=== PATIENT | female | born 1945 | race Caucasian/White ===

== ENCOUNTER 2018-02-21 11:28 | Emergency (ER) | payer MEDICARE, SELFPAY ==
[2018-02-21 11:29] VITALS: BP 148/93; PULSE 80; RESP 17; TEMP 36.7; O2SAT 95; BMI 25.1
--- NOTE | 2018-02-21 12:37 | ED.VISSUMM ---
- ER Visit Summary Date of Service: 02/21/18 Chief Complaint: Nosebleed History of Present Illness: The patient is a 73 F who presents for evaluation of a nosebleed. Patient states her nose spontaneously started bleeding from the left nostril. She denies any trauma, and denies sneezing, blowing or picking her nose. She has had issues with nosebleeds in the past and sees an ENT in [place]. Last episode was approximately 1 year ago. Patient denies being on any blood thinners. No other symptoms, including no nausea. Patient is Turkish-speaking, and the [employer] sed special education teacher service was used. Physical Examination: Patient is well-nourished and well-developed, in no distress, hemodynamically stable. Head is normocephalic and atraumatic. Patient has nasal clamp in place with dried blood around the nose. No blood noted in the posterior oropharynx. No oropharyngeal lesions. Examination of the nares shows no bleeding from the right, mild amount of dried blood around the left external naris, and a small clotted vessel in the posterior region of Keisselbach's plexus. Turbinates with normal appearance. Remainder of exam unremarkable. Test Results: [] Emergency Department Course and Treatment: On initial evaluation, patient's epistaxis had resolved. There was a small vessel in the left Keisselbach's plexus that looked like it had been bleeding. Afrin was instilled in the left naris followed by a pledget soaked in Afrin and 4% lidocaine. After a period of time, the pledget was removed, with no further bleeding. Silver nitrate was used to cauterize around the vessel. Patient tolerated the procedure well. She is to follow-up with ENT if she has continued issues with epistaxis. If she is unable to control epistaxis after 20 minutes, she is to return to the emergency department. Patient discharged home with symptoms resolved. Treatment Plan: [] Disposition: [] Impression: Left anterior epistaxis, status post cauterization This note was generated with [employer] dictation software. It may contain incorrect words, spelling, and punctuation that were not noted in review of the chart prior to signing ED Disposition - Plan for ED Patient: Disposition: Home or Assisted Living Chief Complaint: Nosebleed Instructions: Nosebleed Referrals: Gabriel Carter MD [NON-STAFF] - Additional Instructions: If your nose starts bleeding again, please apply pressure with the nose clamp for 20 minutes. If the bleeding does not stop after 20 minutes, return to the emergency department for further. If you continue to have nosebleeds that you are able to stop at home, you will need to follow-up as soon as possible with your Ear Nose Throat (ENT) doctor in [place]. If you have any worsening of your condition or any new concerning symptoms, please return immediately to the emergency department for another evaluation.
[2018-02-21] MEDS: Lidocaine 4% 50 ML Bottle TOPICAL (12:50)
[2018-02-21] MEDS: Oxymetazoline 0.05% 1 SPRAY SPRAY.BTL 2 SPRAY NASAL (12:50)
[2018-02-21] MEDS: Silver Nitrate (BKC) 1 EACH TOPICAL (12:51)
--- NOTE | 2018-02-21 13:35 | DCINST.ED_ITS ---
ED Disposition - Plan for ED Patient: Disposition: Home or Assisted Living Chief Complaint: Nosebleed Instructions: Nosebleed Referrals: Gabriel Carter MD [NON-STAFF] - Additional Instructions: If your nose starts bleeding again, please apply pressure with the nose clamp for 20 minutes. If the bleeding does not stop after 20 minutes, return to the emergency department for further. If you continue to have nosebleeds that you are able to stop at home, you will need to follow-up as soon as possible with your Ear Nose Throat (ENT) doctor in [place]. If you have any worsening of your condition or any new concerning symptoms, please return immediately to the emergency department for another evaluation.
[2018-02-21 13:54] VITALS: BP 152/79; PULSE 64; RESP 16; O2SAT 96
== END 2018-02-21 14:06 | disposition home or self-care (01) ==
PROVIDERS: Emergency Provider Emergency Medicine
DX: R04.0 Epistaxis (principal); I10 Essential (primary) hypertension; Z79.899 Other long term (current) drug therapy
CPT/HCPCS: 30901; 99282

== ENCOUNTER 2018-04-13 15:23 | Emergency (ER) | payer MEDICARE, SELFPAY ==
[2018-04-13 15:24] VITALS: PULSE 70; RESP 18; TEMP 36.4; O2SAT 97; BMI 25.0
[2018-04-13 15:29] VITALS: BP 131/67
--- NOTE | 2018-04-13 15:36 | CT_ITS ---
STUDY: CT ABDOMEN AND PELVIS WITHOUT CONTRAST REASON FOR EXAM: Female, 73 years old. Abdominal pain for one week. History of cholecystectomy and hysterectomy. RADIATION DOSAGE (If Supplied By Facility): CTDIvol = ( 15.91 ) mGy, DLP = ( 844.61 ) mGycm TECHNIQUE: Transaxial images were obtained from the dome of the diaphragm to the symphysis pubis without oral contrast, and without intravenous contrast. Sagittal and coronal images were reconstructed. Individualized dose optimization techniques were used for this CT. COMPARISON: None. FINDINGS: The visualized lung bases are unremarkable. The visualized portions of the heart are within normal limits. Normal liver. There are surgical clips in the gallbladder fossa consistent with a prior cholecystectomy. Normal spleen. Normal pancreas. Normal bilateral adrenal glands. Normal right kidney. Normal left kidney. Normal visualized stomach. Normal small intestine. Normal colon. There are surgical clips in the region of the appendix consistent with a prior appendectomy. Normal abdominal aorta. Normal inferior vena cava. Normal retroperitoneum. Normal urinary bladder. Normal vaginal cuff. There is no pelvic lymphadenopathy. There are prominent varices along the left pelvic sidewall extending to the left gonadal vein. There is no free air or free fluid within the peritoneal cavity. Normal abdominal wall. There are diffuse degenerative changes of the visualized lumbar spine. CT/Abdomen/Pelvis W IV Cont ONLY IMPRESSION: 1. Status post hysterectomy. There are prominent venous structures in the left pelvis extending upward to the left gonadal gonadal vein. These are of uncertain importance. 2. No other evidence of acute intra-abdominal or pelvic abnormality. 3. Evidence of cholecystectomy and appendectomy. 4. Degenerative changes of the lumbar spine. Electronically Signed: Agustín Ceron DO at 17:18 EST Tel [phone], Service support ,
--- NOTE | 2018-04-13 15:38 | ED.VISSUMM ---
- ER Visit Summary Date of Service: 04/13/18 Chief Complaint: Abdominal pain History of Present Illness: The patient is a 73 F history of hypertension and hiatal hernia. Patient is speaking and speaks limited Yakut. Her is in the room with business writer for her. She has had about a week long history of abdominal pain. Started gradually. Primarily periumbilical. Associated nausea but no vomiting and that seemed to have resolved. No dysuria. Intermittent constipation. No fever. No dysuria. She has had a prior cholecystectomy and hysterectomy reportedly. Physical Examination: Well-appearing older female. Vital signs are stable. She is a eyebrow. She does not look septic or toxic. She is in no distress. HEENT exam unremarkable. Moist mucous membranes. Lungs clear to auscultation bilaterally. Heart regular rhythm no murmur. Abdomen soft. Mild periumbilical tenderness. Nondistended. No hernias or masses. No signs of obstruction. Both the right upper right lower quadrant are not specifically remarkable. There are no peritoneal signs. She does have positive bowel sounds. Patient is moving all 4 extremities. Calves are nontender without edema. Back nontender. Neurologically she is awake and alert. Moving all 4 extremities. Test Results: Hemoglobin 12. Electrolytes unremarkable with normal creatinine and gap. Liver enzymes normal. Lipase normal. UA normal. CT abdomen pelvis with IV contrast shows a prior hysterectomy, cholecystectomy and appendectomy in no acute abnormality. Read by the radiologist and reviewed by me. Emergency Department Course and Treatment: Patient treated with a liter normal saline. Treatment Plan: Repeat exam patient doing well at 1840. Abdomen benign. Will be discharged home to follow-up for further evaluation of abdominal pain of uncertain etiology. Disposition: Discharge Impression: Acute abdominal pain of uncertain etiology This note was generated with [employer] dictation software. It may contain incorrect words, spelling, and punctuation that were not noted in review of the chart prior to signing ED Disposition - Plan for ED Patient: Chief Complaint: Abd Pain Referrals: Care Physician,No Primary [Primary Care Provider] -
--- NOTE | 2018-04-13 15:42 | ED.DCSUM_ITS ---
- ER Visit Summary Date of Service: 04/13/18 Chief Complaint: Abdominal pain History of Present Illness: The patient is a 73 F history of hypertension and hiatal hernia. Patient is speaking and speaks limited Maori. Her is in the room with graduate recruiter for her. She has had about a week long history of abdominal pain. Started gradually. Primarily periumbilical. Associated nausea but no vomiting and that seemed to have resolved. No dysuria. Intermittent constipation. No fever. No dysuria. She has had a prior cholecystectomy and hysterectomy reportedly. Physical Examination: Well-appearing older female. Vital signs are stable. She is a eyebrow. She does not look septic or toxic. She is in no distress. HEENT exam unremarkable. Moist mucous membranes. Lungs clear to auscultation bilaterally. Heart regular rhythm no murmur. Abdomen soft. Mild periumbilical tenderness. Nondistended. No hernias or masses. No signs of obstruction. Both the right upper right lower quadrant are not specifically remarkable. There are no peritoneal signs. She does have positive bowel sounds. Patient is moving all 4 extremities. Calves are nontender without edema. Back nontender. Neurologically she is awake and alert. Moving all 4 extremities. Test Results: Hemoglobin 12. Electrolytes unremarkable with normal creatinine and gap. Liver enzymes normal. Lipase normal. UA normal. CT abdomen pelvis with IV contrast shows a prior hysterectomy, cholecystectomy and appendectomy in no acute abnormality. Read by the radiologist and reviewed by me. Emergency Department Course and Treatment: Patient treated with a liter normal saline. Treatment Plan: Repeat exam patient doing well at 1840. Abdomen benign. Will be discharged home to follow-up for further evaluation of abdominal pain of uncertain etiology. Disposition: Discharge Impression: Acute abdominal pain of uncertain etiology This note was generated with [employer] dictation software. It may contain incorrect words, spelling, and punctuation that were not noted in review of the chart prior to signing ED Disposition - Plan for ED Patient: Chief Complaint: Abd Pain Referrals: Care Physician,No Primary [Primary Care Provider] -
[2018-04-13] MEDS: 0.9% Normal Saline 1,000 ML 1000 ML IV (16:03)
[2018-04-13 16:15] LABS: Absolute Lymphocyte Count 2.53 X10^3/ul (0.83-4.51); Absolute Neutrophil Count 3.9 X10^3/uL (2.0-7.7); Basophil# 0.04 X10^3/uL; Basophil% 0.6 % (0-1); Eosinophil# 0.38 X10^3/uL; Eosinophils% 5.3 % (0-5); Hematocrit 37.5 % (37-47); Hemoglobin 12.3 g/dl (12.0-15.0); Lymphocyte # 2.53 X10^3/ul (4.0); Lymphocyte % 35.1 % (19-41); Mean Corp Hgb Conc 32.8 g/gl (32-36); Mean Corpuscular Hgb 28.3 pg (27.0-32.0); Mean Corpuscular Volume 86.4 fL (81-99); Mean Platelet Vol. 11.1 fl (6.2-12.0); Monocyte# 0.36 X10^3/uL; Neutrophil # 3.89 X10^3/uL (2.7-7.7); Platelet Count 188 K/mm3 (150-450); RBC Distribution Width CV 13.6 % (11.6-14.6); RBC Distribution Width SD 43.1 fl (35.1-43.9); Red Blood Count 4.34 M/mm3 (4.2-5.4); White Blood Count 7.2 K/mm3 (4.4-11.0)
[2018-04-13 16:23] LABS: POSITIVE COUNT NO; POSITIVE DIFFERENTIAL NO; POSITIVE MORPHOLOGY NO
[2018-04-13 16:26] LABS: AST(SGOT) 37 U/L (15-37); Alanine Aminotransfer ALT/SGPT 39 U/L (13-56); Albumin, Serum 3.5 g/dL (3.2-5.0); Alkaline Phosphatase 94 U/L (45-117); Anion Gap 8 (5-15); BUN 13 mg/dL (7-18); BUN/Creat Ratio 17.1 RATIO (10-20); Calcium,Total 8.5 mg/dL (8.5-10.1); Chloride 105 mmol/L (98-107); Creatinine, Serum 0.76 mg/dL (0.55-1.02); EST Glomerular Filtration Rate 80 mL/min (>60); Est Glom Filt Rate - Afr Amer 96 mL/min (>60); Estimated Creatinine Clearance 45.76 ml/min; Glucose 146 mg/dL (74-106); Lipase 209 U/L (73-393); Protein, Total 7.5 g/dL (6.4-8.2); Sodium Level 141 mmol/L (136-145)
[2018-04-13 17:04] LABS: Bacteria 0 SEEN /hpf (None Seen); Mucous, Urine 0 SEEN /hpf (<or=2+); Red Blood Cells-Urine 0 SEEN /hpf (0-5); White Blood Cells 0 SEEN /hpf (0-5)
[2018-04-13 17:06] LABS: Color, Urine Yellow (Yellow); Glucose, Dipstick Normal (Normal); Ketone-Dipstick Negative (Negative); Leukocyte Esterase-Dipstick Negative /ul (Negative); Nitrite-Dipstick Negative (Negative); Occult Blood-Urine Negative /ul (Negative); Protein-Dipstick Negative (Negative); Urine Bilirubin Dipstick Negative (Negative); Urine Clarity Clear (Clear); Urine Urobilinogen Normal (Normal)
[2018-04-13 17:23] VITALS: BP 130/72; PULSE 82; RESP 16; O2SAT 99
[2018-04-13 17:24] LABS: Squamous Epithelial Cells - UA 0-5 SEEN /hpf (5-10)
--- NOTE | 2018-04-13 18:43 | ED.DEP ---
ED Disposition - Plan for ED Patient: Chief Complaint: Abd Pain Instructions: ED Abdominal Pain Unkn Cause Referrals: Dick Gatica MD [NON-STAFF] - 3-5 Days if not improving Additional Instructions: Return if feeling worse otherwise follow-up with the outpatient physician and referred to.
[2018-04-13 19:00] VITALS: BP 130/72; PULSE 82; RESP 16; O2SAT 99
[2018-04-13 19:17] VITALS: BP 130/72; PULSE 82; RESP 16; O2SAT 99
== END 2018-04-13 19:19 | disposition home or self-care (01) ==
LOC: ED 16:12
PROVIDERS: Emergency Provider Emergency Medicine
DX: K44.9 Diaphragmatic hernia without obstruction or gangrene (principal); I10 Essential (primary) hypertension; K59.00 Constipation, unspecified; Z79.899 Other long term (current) drug therapy; Z90.49 Acquired absence of other specified parts of digestive tract; Z90.710 Acquired absence of both cervix and uterus
CPT/HCPCS: 74177; 80048; 80076; 81001; 83690; 85025; 96360; 96361; 99284; J7030; Q9967; A4216

== ENCOUNTER 2019-10-29 16:22 | Emergency (ER) | payer MEDICARE, SELFPAY ==
[2019-10-29 16:23] VITALS: BP 139/88; PULSE 106; RESP 20; TEMP 37.1; O2SAT 97; BMI 26.6
--- NOTE | 2019-10-29 16:50 | RAD_ITS ---
STUDY: X-RAY CHEST REASON FOR EXAM: Female, 74 years old. Chest pain, fever. TECHNIQUE: Single frontal view of the chest. COMPARISON: None. FINDINGS: The lungs are clear and expanded. There is no demonstrated pleural abnormality. Normal size heart. Normal mediastinum and christopher. Normal visualized pulmonary arteries. Normal visualized aortic arch and descending thoracic aorta. Normal visualized thoracic spine. Normal visualized ribs, clavicles, and shoulders. Cholecystectomy clips. RAD/Chest 1 View (Portable) IMPRESSION: No acute pulmonary findings. Electronically Signed: Dick Lozano MD at 17:03 EDT Tel , Service support ,
--- NOTE | 2019-10-29 16:51 | NURSING ---
NO OLD EKGS
--- NOTE | 2019-10-29 17:03 | EKG12_ITS ---
Test Reason : ILNESS Blood Pressure : / mmHG Vent. Rate : 096 BPM Atrial Rate : 096 BPM P-R Int : 126 ms QRS Dur : 066 ms QT Int : 372 ms P-R-T Axes : 011 056 040 degrees QTc Int : 469 ms Normal sinus rhythm Normal ECG Confirmed by KYARA VALENCIA ([id number]), loan expeditor MANNY TURK ([id number]) on 11/01/2019 11:27:14 AM Referred By: LEO Confirmed By:KYARA VALENCIA
[2019-10-29] MEDS: Ondansetron 4 MG/2 ML Vial IV (17:30)
[2019-10-29] MEDS: Morphine 4 MG/ML Syringe IV (17:30)
[2019-10-29 17:35] LABS: Absolute Lymphocyte Count 2.13 X10^3/uL (0.83-4.51); Absolute Neutrophil Count 5.1 X10^3/uL (2.0-7.7); Basophil# 0.06 X10^3/uL; Basophil% 0.7 % (0-1); Eosinophil# 0.49 X10^3/uL; Hematocrit 37.8 % (37-47); Hemoglobin 12.3 g/dL (12.0-15.0); Lymphocyte # 2.13 X10^3/ul (4.0); Lymphocyte % 25.9 % (19-41); Mean Corp Hgb Conc 32.5 g/dL (32-36); Mean Corpuscular Volume 86.1 fL (81-99); Mean Platelet Vol. 11.1 fl (6.2-12.0); Monocyte# 0.45 X10^3/uL; Monocyte% 5.5 % (0-10); NRBC Flagged by Analyzer 0 % (0-5); Neutrophil # 5.08 X10^3/uL (2.7-7.7); Neutrophil % 61.7 % (47-70); Platelet Count 198 K/mm3 (150-450); RBC Distribution Width CV 13.1 % (11.6-14.6); RBC Distribution Width SD 40.6 fl (35.1-43.9); Red Blood Count 4.39 M/mm3 (4.2-5.4); White Blood Count 8.2 K/mm3 (4.4-11.0)
[2019-10-29 17:40] VITALS: TEMP 36.6
[2019-10-29 17:48] LABS: International Normalized Ratio 1.1; Partial Thromboplast Time 26.4 Seconds (24.1-36.2); Prothrombin Time (Protime)PT. 13.3 SECONDS (11.7-14.9)
[2019-10-29 17:56] LABS: ALB/GLOB Ratio 0.8 RATIO (0.9-2.4); AST(SGOT) 59 U/L (15-37); Alanine Aminotransfer ALT/SGPT 44 U/L (13-56); Albumin, Serum 3.3 g/dL (3.2-5.0); Alkaline Phosphatase 70 U/L (45-117); Anion Gap 5 (5-15); BUN 13 mg/dL (7-18); BUN/Creat Ratio 12.7 RATIO (10-20); Calcium,Total 8.5 mg/dL (8.5-10.1); Chloride 107 mmol/L (98-107); Creatinine, Serum 1.02 mg/dL (0.55-1.02); EST Glomerular Filtration Rate 56 mL/min (>60); Est Glom Filt Rate - Afr Amer 68 mL/min (>60); Globulin 4.1 g/dL (2.2-4.2); Glucose 169 mg/dL (74-106); Potassium 4.6 mmol/L (3.5-5.1); Protein, Total 7.4 g/dL (6.4-8.2); Sodium Level 138 mmol/L (136-145)
[2019-10-29 18:08] LABS: Lactic Acid 2.2 mmol/L (0.4-1.9)
[2019-10-29 18:10] VITALS: BP 148/83; PULSE 85; RESP 20; TEMP 36.6; O2SAT 96
[2019-10-29 19:21] LABS: Bacteria 0 SEEN /hpf (None Seen); Mucous, Urine 0 SEEN /hpf (<or=2+); Red Blood Cells-Urine 0 SEEN /hpf (0-5); White Blood Cells 0 SEEN /hpf (0-5)
[2019-10-29 19:23] LABS: Color, Urine Yellow (Yellow); Glucose, Dipstick Normal (Normal); Ketone-Dipstick Negative (Negative); Leukocyte Esterase-Dipstick Negative /ul (Negative); Nitrite-Dipstick Negative (Negative); Occult Blood-Urine Negative /ul (Negative); Protein-Dipstick Negative (Negative); Specific Gravity, Urine 1.015 (1.002-1.030); Urine Bilirubin Dipstick Negative (Negative); Urine Clarity Clear (Clear); Urine Urobilinogen Normal (Normal)
[2019-10-29 19:29] LABS: Squamous Epithelial Cells - UA 0-5 SEEN /hpf (5-10)
[2019-10-29 20:00] VITALS: BP 155/65; PULSE 65; RESP 20; TEMP 36.6; O2SAT 97
[2019-10-29] MEDS: 0.9% Normal Saline 1,000 ML 999 ML IV (20:11)
--- NOTE | 2019-10-29 20:41 | ED.VISSUMM ---
- ER Visit Summary Date of Service: 10/29/19 Chief Complaint: Fever History of Present Illness: The patient is a [address] Gatica. She reports that she has a fever that began 4 days ago. She has not taken her temperature she just complains of subjective fever and chills. She has a sore throat that is 7 out of 10 in severity. She denies cough. She reports that she had an episode of chest pain 3 days ago. She denies any chest pain since that time. She reports that she has abdominal pain is 3 out of 10 in severity. She is been nausea and having diarrhea 3 times a day for the past 3 days. She denies any hematochezia. She does report that her stools been black. She complains of dysuria and frequency. She also complains of generalized weakness. Patient denies sick contacts. Has not been camping out of the country. No possible bad food exposure. Does not drink well water. No recent antibiotic use. Physical Examination: Vitals: Stable. Afebrile. General: Well-nourished and well-developed. Head: Normocephalic atraumatic. HEENT: Pharyngeal erythema. No tonsillar exudate or enlargement. No cervical lymphadenopathy. Neck: Supple, no lymphadenopathy. No JVD. Nontender. Cardiovascular: Regular rate and rhythm. No murmurs. Respiratory: No respiratory distress. Clear to auscultation bilaterally. Abdominal: Soft, nontender, nondistended, normal bowel sounds. No guarding, rebound, or peritoneal signs. Back: Nontender. Extremities: Nontender, no edema. Skin: Normal color, no rash. Neurologic: Alert and oriented ?3. Cranial nerves II through XII are intact. Normal strength and sensation. Psych: Normal affect. Test Results: EKG is sinus at [address] changes. Troponin is negative. Strep is negative. COVID is negative. UA is normal. LFTs show an AST of 59. Coags are negative. Chem-7 shows a glucose of 169. CBC shows eosinophils of 6. Lactic acid is 2.2. Chest x-ray is normal. Emergency Department Course and Treatment: Patient was given a liter of normal saline. She was given morphine and Zofran IV. She is resting comfortably. She was unable to present a stool sample while in the emergency department. Treatment Plan: I had a prolonged discussion the patient and her at this time I do not have an explanation for her symptoms. We did discuss the possibility of a false negative COVID test. She is instructed to quarantine. Follow-up with her primary care physician in 2 weeks not improving. Return to the emergency department for any worsening symptoms. Disposition: To home in improved and stable condition. Impression: 1. Fever, uncertain cause. 2. Diarrhea. This note was generated with [employer] dictation software. It may contain incorrect words, spelling, and punctuation that were not noted in review of the chart prior to signing ED Disposition - Plan for ED Patient: Disposition: Home or Assisted Living Instructions: ED FUO Adult Referrals: Dick Gatica MD [Primary Care Provider] - 2 Days
[2019-10-29 21:21] VITALS: BP 154/73; PULSE 58; RESP 17; TEMP 36.9; O2SAT 98
[2019-10-29 21:29] LABS: Reflex Lactate? Y
== END 2019-10-29 21:22 | disposition home or self-care (01) ==
LOC: ED 16:58
PROVIDERS: Emergency Provider Emergency Medicine; PCP Family Medicine
DX: R50.9 Fever, unspecified (principal); R19.7 Diarrhea, unspecified; R07.9 Chest pain, unspecified; I10 Essential (primary) hypertension; E11.9 Type 2 diabetes mellitus without complications; Z79.84 Long term (current) use of oral hypoglycemic drugs; Z79.899 Other long term (current) drug therapy
CPT/HCPCS: 71045; 80053; 81001; 83605; 84484; 85025; 85610; 85730; 87040; 87077; 87086; 87088; 87186; 87635; 87880; 93005; 96361; 96374; 96375; 99284; J7040; A4216; J2405; U0003